=== PATIENT | male | born 1945 | race Caucasian/White ===

== ENCOUNTER 2023-06-01 07:39 | Inpatient (IN) | payer OTHER ==
[~2023-06-01] VITALS: Ht 182.9 cm; Wt 93.4 kg
[~2023-06-01 07:39] MED LIST: ACETAMINOPHEN 500 MG TABLET PO ONE; CEFAZOLIN SOD 2 GM in D5W 50 ML IV ONE
[2023-06-01] MEDS ORDERED: ACETAMINOPHEN 500 MG TABLET ONE (07:53)
[2023-06-01] MEDS: ACETAMINOPHEN 500 MG TABLET PO ONE (08:50)
[2023-06-01] MEDS ORDERED: VANCOMYCIN HCL 1000 MG/VIAL IV ONE (10:00)
[2023-06-01] MEDS ORDERED: KETOROLAC TROMETHAMINE 30 MG VIAL ONE (10:00)
[2023-06-01] MEDS ORDERED: ONDANSETRON HCL 4 MG/2 ML VIAL ONE (10:00)
[2023-06-01] MEDS ORDERED: MIDAZOLAM HCL 2 MG/2 ML VIAL (VERSED) ONE (10:00)
[2023-06-01] MEDS ORDERED: PROPOFOL 200MG/ 20ML VIAL (DIPRIVAN) IV ONE (10:00)
[2023-06-01] MEDS ORDERED: DESFLURANE 15 MIN GAS INH ONE (10:00)
[2023-06-01] MEDS ORDERED: ATROPINE SULFATE 0.4 MG/ML VIAL ONE (10:00)
[2023-06-01] MEDS ORDERED: BUPIVACAINE /DEX PF 0.75% SPINAL 2 ML AMP INJ ONE (10:00)
[2023-06-01] MEDS ORDERED: BUPIVACAINE /PF 0.25% 30 ML VIAL INJ ONE (10:00)
[2023-06-01] MEDS ORDERED: LIDOCAINE 2%, 20 ML MDV ONE (10:00)
[2023-06-01] MEDS ORDERED: LR 1,000 ML IV.SOLN IV ONE (10:00)
[2023-06-01] MEDS ORDERED: SUGAMMADEX SODIUM 200 MG/2 ML VIAL IV ONE (10:00)
[2023-06-01] MEDS ORDERED: ROCURONIUM BROMIDE 10 MG/ML (ZEMURON) ONE (10:00)
[2023-06-01] MEDS ORDERED: DEXAMETHASONE SOD PHOSPHATE 4 MG/ML VIAL ONE (10:00)
[2023-06-01] MEDS ORDERED: TRANEXAMIC ACID 1,000 MG/10 ML VIAL ONE (10:00)
[2023-06-01] MEDS ORDERED: NS IRRIG SOLN 1000 ML IR ONE (10:00)
[2023-06-01] MEDS ORDERED: NS IRRIG SOLN 5000 ML IR ONE (10:00)
[2023-06-01] MEDS ORDERED: oxyCODONE HCL 5 MG TABLET PO PRN ×2 (11:00)
[2023-06-01] MEDS ORDERED: LORATADINE 10 MG TABLET PO PRN (11:00)
[2023-06-01] MEDS ORDERED: HYDROmorphone 1 MG/ML INJ. CARTRIDGE IVP PRN ×5 (11:00→11:15)
[2023-06-01] MEDS ORDERED: MEPERIDINE HCL/PF 25 MG/ML DISP.SYRIN IVP PRN (11:15)
[2023-06-01] MEDS ORDERED: hydrALAZINE HCL 20 MG/ML VIAL IVP PRN (11:15)
[2023-06-01] MEDS ORDERED: ONDANSETRON HCL 4 MG/2 ML VIAL IVP PRN ×2 (11:15→11:45)
[2023-06-01] MEDS ORDERED: LOSA1TAB43 PO (11:50)
[2023-06-01] MEDS ORDERED: AMLO2.5T2 PO (11:52)
[2023-06-01] MEDS ORDERED: SERT25TA PO (11:53)
[2023-06-01] MEDS ORDERED: EZET-55 PO (11:57)
[2023-06-01] MEDS ORDERED: TADA5TAB13 PO (11:59)
[2023-06-01] MEDS ORDERED: TRAZ-250 PO (12:01)
[2023-06-01] MEDS ORDERED: NEU300 PO (12:02)
[2023-06-01] MEDS ORDERED: SILD100T70 PO (12:03)
[2023-06-01] MEDS ORDERED: POLY30DR OP (12:05)
[2023-06-01] MEDS ORDERED: CICL90CR10 TP (12:07)
[2023-06-01] MEDS ORDERED: MYCOLOG15 TP (12:08)
[2023-06-01] MEDS ORDERED: TIMO5DRO16 EACH EYE (12:10)
[2023-06-01] MEDS ORDERED: DORZ10DR20 OP (12:28)
[2023-06-01] MEDS ORDERED: XALEYE OP (12:28)
[2023-06-01] MEDS ORDERED: BRI.2% EACH EYE (12:30)
[2023-06-01] MEDS ORDERED: DOCU-144 PO (12:31)
[2023-06-01] MEDS ORDERED: MAGN400T10 PO (12:33)
[2023-06-01] MEDS ORDERED: VITA400T9 PO (12:34)
[2023-06-01] MEDS ORDERED: METOCLOPRAMIDE HCL 10 MG/2 ML VIAL IVP PRN (13:00)
[2023-06-01] MEDS ORDERED: NALOXONE HCL 2 MG/2 ML SYR IVP PRN ×3 (13:00)
[2023-06-01] MEDS ORDERED: BISACODYL 10 MG/SUPPOSITORY RC PRN (13:00)
[2023-06-01] MEDS ORDERED: LACTULOSE 20 GM/30 ML UDC PO PRN (13:00)
[2023-06-01] MEDS ORDERED: DIPHENHYDRAMINE HCL 25 MG CAPSULE PO PRN (13:00)
[2023-06-01 15:15] VITALS: BP_SYST 125; PULSE 41; RESP 16; TEMP 97.1; O2SAT 98
[2023-06-01] MEDS: ACETAMINOPHEN 500 MG TABLET PO SCH (15:58)
[2023-06-01] MEDS: KETOROLAC TROMETHAMINE 10 MG TABLET (TORADOL) PO SCH (16:17)
[2023-06-01] MEDS: LR 1,000 ML IV SCH (16:18)
[2023-06-01] MEDS: ceFAZolin SODIUM 2 GM in D5W 50 ML IV SCH (16:23)
[2023-06-01 16:52] VITALS: BP_SYST 143; PULSE 48; RESP 16; TEMP 97.4; O2SAT 99
[2023-06-01 20:00] VITALS: BP_SYST 142; PULSE 55; RESP 18; TEMP 97.5
[2023-06-01] MEDS ORDERED: DOCUSATE SODIUM 100 MG CAPSULE PO SCH (21:00)
[2023-06-01] MEDS ORDERED: traZODone HCL 50 MG TABLET (DESYREL) PO SCH (21:00)
[2023-06-01] MEDS ORDERED: SERTRALINE HCL 50 MG TABLET PO SCH (21:00)
[2023-06-01] MEDS: DORZOLAMIDE 2% OPHTHALMIC SOLN 5ML OP SCH (21:31)
[2023-06-01] MEDS: BRIMONIDINE TARTRATE 0.2% 5 mL EYE DROPS EACH EYE SCH (21:33)
[2023-06-01] MEDS: THEOPHYLLINE ANHYDROUS 80 MG/15 ML UDC PO SCH (21:34)
[2023-06-01] MEDS: TIMOLOL MALEATE 0.5% OPHTHALMIC DROPS 5 ML EACH EYE SCH (21:34)
[2023-06-01] MEDS: LATANOPROST 2.5 ML DROPS (XALATAN) OP SCH (21:35)
[2023-06-01] MEDS: traZODone HCL 50 MG TABLET (DESYREL) PO SCH (21:36)
[2023-06-01] MEDS: GABAPENTIN 300 MG CAPSULE PO SCH (21:36)
[2023-06-01] MEDS: SENNOSIDES/DOCUSATE SODIUM 1 TAB TABLET(SENOKOT-S) PO SCH (21:37)
[2023-06-02 00:03] VITALS: BP_SYST 134; PULSE 58; RESP 18; TEMP 97.4; O2SAT 96
[2023-06-02 00:21] LABS: BILIRUBIN,URINE NEGATIVE (NEGATIVE); BLOOD, URINE 2+ (NEGATIVE); COLOR,URINE YELLOW (YELLOW); GLUCOSE,URINE NEGATIVE (NEGATIVE); KETONES,URINE NEGATIVE (NEGATIVE); LEUKOCYTE ESTERASE ,URINE NEGATIVE (NEGATIVE); NITRITE, URINE NEGATIVE (NEGATIVE); PH,URINE 7.5 (5.0-8.0); PROTEIN URINE NEGATIVE (NEGATIVE); UROBILINOGEN,URINE 0.2 (0.2-1.0)
[2023-06-02 01:28] LABS: CLARITY/URINE HAZY (CLEAR)
[2023-06-02 01:29] LABS: RBC,URINE 50-80 /HPF (0-3); WBC,URINE 0-3 /HPF (0-3)
[2023-06-02 01:30] LABS: BACTERIA,URINE None Seen /HPF (None Seen)
[2023-06-02] MEDS: TAMSULOSIN HCL 0.4 MG CAP PO ONE ×2 (06:45→17:58)
[2023-06-02 06:55] LABS: BASOPHILS % (AUTO) 0.1 % (0.0-2.0); EOSINOPHILS % (AUTO) 0.1 % (0.0-4.0); HEMOGLOBIN 12.6 g/dL (14.0-18.0); LYMPHOCYTES % (AUTO) 11.2 % (20.5-51.5); MEAN CORPUSCULAR HEMOGLOBIN 32 pg (27-31); MEAN CORPUSCULAR HGB CONC 34 % (32-36); MEAN CORPUSCULAR VOLUME 95 fL (79.0-98.0); MONOCYTES % (AUTO) 10.8 % (1.7-9.3); NEUTROPHILS # (AUTO) 7.1 K/uL (1.8-7.7); NEUTROPHILS % (AUTO) 77.8 % (40.0-70.0); PLATELET COUNT (AUTO) 147 K/uL (130-430); RED BLOOD CELL COUNT(AUTO) 3.89 MIL/uL (4.2-6.2); RED CELL DISTRIBUTION WIDTH 13.5 % (9.0-15.0); WHITE BLOOD COUNT (AUTO) 9.1 K/uL (4.8-10.8)
[2023-06-02 07:24] LABS: ALANINE AMINOTRANSFERASE 23 U/L (12-78); ALBUMIN 2.9 g/dL (3.4-4.8); ANION GAP 8 (5-15); ASPARTATE AMINOTRANSFERASE 26 U/L (10-37); CALCIUM 9.2 mg/dL (8.4-11.0); CARBON DIOXIDE 29 mmol/L (23-29); CHLORIDE 100 mmol/L (98-107); CREATININE 0.99 mg/dL (0.55-1.30); GLUCOSE 128 mg/dL (74-106); SODIUM SERUM 137 mmol/L (136-145); TOTAL BILIRUBIN 0.7 mg/dL (0.0-1.0); TOTAL PROTEIN, SERUM 5.9 g/dL (6.4-8.3); UREA NITROGEN, BLOOD 19 mg/dL (8-21)
[2023-06-02 08:00] VITALS: BP_SYST 129; PULSE 46; RESP 18; TEMP 98.3; O2SAT 99
[2023-06-02 08:12] VITALS: O2SAT 99
[2023-06-02] MEDS: ASPIRIN 81 MG TAB.CHEW PO SCH (09:26)
[2023-06-02] MEDS: TAMSULOSIN HCL 0.4 MG CAP PO SCH (09:28)
[2023-06-02] MEDS: SERTRALINE HCL 50 MG TABLET PO SCH (09:31)
[2023-06-02] MEDS: CELECOXIB 200 MG CAPSULE PO SCH (11:00)
[2023-06-02 12:00] VITALS: BP_SYST 133; PULSE 47; RESP 18; TEMP 98.5; O2SAT 98
[2023-06-02 16:00] VITALS: BP_SYST 127; PULSE 45; RESP 16; TEMP 98.8; O2SAT 97
[2023-06-02 20:21] VITALS: BP_SYST 137; PULSE 55; RESP 19; TEMP 97.6; O2SAT 99
[2023-06-02] MEDS: traMADol HCL HCL 50 MG TABLET (ULTRAM) PO PRN (21:01)
== END 2023-06-02 21:40 | disposition home or self-care (01) | DRG 470 ==
LOC: SMU 07:39 → STU 15:27
PROVIDERS: ADMIT Orthopaedic Surgery Sports Medicine; ATTEND Orthopaedic Surgery Sports Medicine
PROC: 0SR90JA Replacement of Right Hip Joint with Synthetic Substitute, Uncemented, Open Approach (ICD-10-PCS; principal; 2023-06-01 10:55)
DX: M16.11 Unilateral primary osteoarthritis, right hip (principal); N40.1 Benign prostatic hyperplasia with lower urinary tract symptoms; I10 Essential (primary) hypertension; E78.5 Hyperlipidemia, unspecified
CPT/HCPCS: 36415; 73502; 76000; 80053; 81000; 81001; 81015; 83735; 85025; 87081; 88304; 88311; 93005; 96379; 97110-GP; 97116-GP; 97530-GP; G0378; J0461; J0690; J1100; J1885; J2001; J2405; J2704; J3370; J3465; J3490; J7060; J7120

== ENCOUNTER 2024-01-02 07:09 | Observation (INO) | payer OTHER ==
[2024-01-02] VITALS (9 sets, daily range): BP systolic 116–142; PULSE 49–58; RESP 18–20; TEMP 97.1–97.6; O2SAT 93–96
[~2024-01-02] VITALS: Ht 182.9 cm; Wt 99.8 kg
[2024-01-02] MEDS: KETOROLAC TROMETHAMINE 10 MG TABLET (TORADOL) PO SCH (06:00)
[2024-01-02] MEDS: ceFAZolin SODIUM 2 GM in D5W 50 ML IV SCH (06:00)
[2024-01-02] MEDS: CEFAZOLIN SOD 2 GM in D5W 50 ML IV ONE (07:00)
[~2024-01-02 07:09] MED LIST changes: -ACETAMINOPHEN 500 MG TABLET PO ONE; +AMLO2.5T2 PO; +BRI.2% EACH EYE; -CEFAZOLIN SOD 2 GM in D5W 50 ML IV ONE; +CICL90CR10 TP; +DOCU-144 PO; +DORZ10DR20 OP; +EZET-55 PO; +LOSA1TAB43 PO; +MAGN400T10 PO; +MYCOLOG15 TP; +NEU300 PO; +POLY30DR OP; +SERT25TA PO; +SILD100T70 PO; +TADA5TAB13 PO; +TIMO5DRO16 EACH EYE; +TRAZ-250 PO; +VITA400T9 PO; +XALEYE OP
[2024-01-02] MEDS ORDERED: LACTULOSE 20 GM/30 ML UDC PO PRN (07:15)
[2024-01-02] MEDS ORDERED: DIPHENHYDRAMINE HCL 25 MG CAPSULE PO PRN (07:15)
[2024-01-02] MEDS ORDERED: NALOXONE HCL 0.4 MG/ML AMP (NARCAN) IVP PRN (07:15)
[2024-01-02] MEDS ORDERED: BISACODYL 10 MG/SUPPOSITORY RC PRN (07:15)
[2024-01-02] MEDS ORDERED: METOCLOPRAMIDE HCL 10 MG/2 ML VIAL IVP PRN (07:15)
[2024-01-02] MEDS: ACETAMINOPHEN 500 MG TABLET ONE (07:29)
[2024-01-02] MEDS: oxyCODONE HCL 10 MG TAB.ER.12H PO ONE ×2 (07:30→10:04)
[2024-01-02] MEDS: GABAPENTIN 300 MG CAPSULE ONE (07:30)
[2024-01-02] MEDS: GABAPENTIN 300 MG CAPSULE PO ONE (07:46)
[2024-01-02] MEDS: ACETAMINOPHEN 500 MG TABLET PO ONE (07:46)
[2024-01-02] MEDS ORDERED: GLYCOPYRROLATE 0.2 MG/ML VIAL ONE (10:05)
[2024-01-02] MEDS ORDERED: MIDAZOLAM HCL 2 MG/2 ML VIAL (VERSED) ONE (10:05)
[2024-01-02] MEDS ORDERED: PROPOFOL 200MG/ 20ML VIAL (DIPRIVAN) IV ONE (10:05)
[2024-01-02] MEDS ORDERED: VANCOMYCIN HCL 1000 MG/VIAL IV ONE (10:05)
[2024-01-02] MEDS ORDERED: ONDANSETRON HCL 4 MG/2 ML VIAL ONE (10:05)
[2024-01-02] MEDS ORDERED: LR 1,000 ML IV.SOLN IV ONE (10:05)
[2024-01-02] MEDS ORDERED: fentaNYL CITRATE/PF 100 MCG/2 ML AMP ONE (10:05)
[2024-01-02] MEDS ORDERED: NS IRRIG SOLN 1000 ML IR ONE (10:05)
[2024-01-02] MEDS ORDERED: DEXAMETHASONE SOD PHOSPHATE 4 MG/ML VIAL ONE (10:05)
[2024-01-02] MEDS ORDERED: ROCURONIUM BROMIDE 10 MG/ML (ZEMURON) ONE (10:05)
[2024-01-02] MEDS ORDERED: BUPIVACAINE /PF 0.25% 10 ML VIAL INJ ONE (10:05)
[2024-01-02] MEDS ORDERED: LORATADINE 10 MG TABLET PO PRN (11:00)
[2024-01-02] MEDS ORDERED: HYDROmorphone 1 MG/ML INJ. CARTRIDGE IVP PRN ×5 (11:00→11:15)
[2024-01-02] MEDS ORDERED: oxyCODONE HCL 5 MG TABLET PO PRN ×2 (11:00)
[2024-01-02] MEDS ORDERED: MEPERIDINE HCL/PF 25 MG/ML DISP.SYRIN IVP PRN (11:15)
[2024-01-02] MEDS ORDERED: hydrALAZINE HCL 20 MG/ML VIAL IVP PRN (11:15)
[2024-01-02] MEDS ORDERED: ONDANSETRON HCL 4 MG/2 ML VIAL IVP PRN ×2 (11:15→11:45)
[2024-01-02] MEDS: LR 1,000 ML IV SCH (11:15)
[2024-01-02] MEDS: ACETAMINOPHEN 500 MG TABLET PO SCH (14:00)
[2024-01-02] MEDS: TAMSULOSIN HCL 0.4 MG CAP PO ONE ×2 (14:30→17:45)
[2024-01-02] MEDS: TAMSULOSIN HCL 0.4 MG CAP ONE ×2 (14:37→17:43)
[2024-01-02] MEDS: SENNOSIDES/DOCUSATE SODIUM 1 TAB TABLET(SENOKOT-S) PO SCH (22:07)
[2024-01-03 00:25] VITALS: BP_SYST 103; PULSE 51; RESP 18; TEMP 97.7; O2SAT 94
[2024-01-03 01:25] VITALS: BP_SYST 114; PULSE 58; RESP 18; TEMP 97.2; O2SAT 94
[2024-01-03 02:30] VITALS: BP_SYST 102; PULSE 52; RESP 18; TEMP 97.9; O2SAT 92
[2024-01-03] MEDS ORDERED: SIMVASTATIN PO SCH (07:15)
[2024-01-03] MEDS ORDERED: [UNRECOGNIZED DRUG - OTHER] PO SCH (07:15)
[2024-01-03] MEDS ORDERED: EZETIMIBE PO SCH (07:15)
[2024-01-03] MEDS ORDERED: CICLOPIROX OLAMINE TP SCH (07:15)
[2024-01-03] MEDS: ceFAZolin SODIUM 2 GM in D5W 50 ML IV SCH (07:35)
[2024-01-03] MEDS ORDERED: TIMO5DRO18 EACH EYE (07:43)
[2024-01-03 08:00] VITALS: BP_SYST 127; PULSE 63; RESP 18; TEMP 98.6; O2SAT 96
[2024-01-03] MEDS ORDERED: PEG 400/HYPROMELLOSE/GLYCERIN 15 ML DROPS OP PRN (08:30)
[2024-01-03 08:38] LABS: ALANINE AMINOTRANSFERASE 28 U/L (12-78); ALBUMIN 3.3 g/dL (3.4-4.8); ANION GAP 7 (5-15); ASPARTATE AMINOTRANSFERASE 38 U/L (10-37); CALCIUM 9.2 mg/dL (8.4-11.0); CARBON DIOXIDE 27 mmol/L (23-29); CHLORIDE 102 mmol/L (98-107); CREATININE 1.12 mg/dL (0.55-1.30); GLUCOSE 115 mg/dL (74-106); POTASSIUM 4.2 mmol/L (3.5-5.1); SODIUM SERUM 136 mmol/L (136-145); TOTAL BILIRUBIN 0.7 mg/dL (0.0-1.0); TOTAL PROTEIN, SERUM 5.9 g/dL (6.4-8.3); UREA NITROGEN, BLOOD 16 mg/dL (8-21)
[2024-01-03] MEDS: TAMSULOSIN HCL 0.4 MG CAP PO SCH (08:47)
[2024-01-03] MEDS: DORZOLAMIDE 2% OPHTHALMIC SOLN 5ML OP SCH (08:48)
[2024-01-03] MEDS: TIMOLOL MALEATE 0.5% OPHTHALMIC DROPS 5 ML EACH EYE SCH (08:48)
[2024-01-03] MEDS: BRIMONIDINE TARTRATE 0.2% 5 mL EYE DROPS EACH EYE SCH (08:48)
[2024-01-03] MEDS: ASPIRIN 81 MG TAB.CHEW PO SCH (08:48)
[2024-01-03] MEDS ORDERED: DOCUSATE SODIUM 100 MG CAPSULE PO SCH ×2 (09:00→15:00)
[2024-01-03] MEDS ORDERED: EZETIMIBE 10 MG TABLET PO SCH (09:00)
[2024-01-03] MEDS ORDERED: SIMVASTATIN 20 MG TABLET PO SCH (09:00)
[2024-01-03] MEDS ORDERED: EZETIMIBE 10 MG TABLET PO ONE (09:15)
[2024-01-03] MEDS: TAMSULOSIN HCL 0.4 MG CAP PO ONE (09:57)
[2024-01-03] MEDS: amLODIPine BESYLATE 5 MG TABLET PO ONE (10:31)
[2024-01-03] MEDS: CELECOXIB 200 MG CAPSULE PO SCH (10:31)
[2024-01-03] MEDS: SIMVASTATIN 20 MG TABLET PO ONE (10:31)
[2024-01-03] MEDS: DOCUSATE SODIUM 100 MG CAPSULE PO ONE (10:32)
[2024-01-03] MEDS: MAGNESIUM OXIDE 400 MG TABLET PO SCH (10:32)
[2024-01-03] MEDS: SERTRALINE HCL 50 MG TABLET PO ONE (10:32)
[2024-01-03] MEDS: NYSTATIN/TRIAMCIN 15 GM TOPICAL CREAM TP SCH (10:33)
[2024-01-03] MEDS: traMADol HCL HCL 50 MG TABLET (ULTRAM) PO PRN (10:54)
[2024-01-03 12:30] VITALS: BP_SYST 136; PULSE 50; RESP 18; TEMP 97.9; O2SAT 97
[2024-01-03 12:35] VITALS: BP_SYST 136; PULSE 50; RESP 18; TEMP 97.9; O2SAT 97
[2024-01-03] MEDS ORDERED: LATANOPROST 2.5 ML DROPS (XALATAN) OP SCH (21:00)
[2024-01-04] MEDS ORDERED: EZETIMIBE 10 MG TABLET PO SCH (09:00)
[2024-01-04] MEDS ORDERED: SIMVASTATIN 20 MG TABLET PO SCH (09:00)
[2024-01-04] MEDS ORDERED: TAMSULOSIN HCL 0.4 MG CAP PO SCH (09:00)
== END 2024-01-03 13:50 | disposition home or self-care (01) ==
LOC: INTOOBSV 07:09 → SMU 07:09
PROVIDERS: ADMIT Orthopaedic Surgery Sports Medicine; ATTEND Orthopaedic Surgery Sports Medicine
DX: M16.12 Unilateral primary osteoarthritis, left hip (principal); G89.18 Other acute postprocedural pain; I10 Essential (primary) hypertension; Z79.899 Other long term (current) drug therapy
CPT/HCPCS: 87081; 64447; 27130; 93005; 72170; 76000; 96379; 97110 ×2; 97530 ×2; 97116 ×2; 97162; 88304; 88311; 96365; 96366; 80053; 36415; J3490 ×2; J0690; J0696; J1100; J2250; J2405; J2704; J3370; J3010; J7060 ×3; J7120; G0378 ×2; C1776 ×4; C1713